=== PATIENT | female | born 1970 | race Caucasian/White ===

== ENCOUNTER 2016-09-25 13:11 | Emergency (ER) | payer OTHER ==
[2016-09-25 13:20] VITALS: RESP 16
--- NOTE | 2016-09-25 14:06 | ED ---
General Adult HPI - General Chief complaint: Extremity Injury, Lower Stated complaint: Knee Injury Time Seen by Provider: 09/25/16 13:26 Source: patient Mode of arrival: wheelchair Limitations: no limitations - History of Present Illness Initial comments: 46-year-old female presenting for right knee pain. Patient states that she was getting up into her truck and holding some items when she twisted and felt a pop and pain in her right knee. Since that time she feels like she is having pain any time she bears weight. She does have a history of right knee pain and has had recent MRI and orthopedic evaluation for this. She is waiting to start physical therapy this upcoming week for chronic right knee pain. She denies any other injury or fall. She denies any head trauma. She denies any foot or ankle pain. - Related Data Home Medications Medication Instructions Recorded Confirmed Hair Skin Nails 1 tab PO QAM 01/12/15 09/25/16 Aspirin 81 mg PO QAM 06/19/15 09/25/16 Clopidogrel [Plavix] 75 mg PO QAM 06/19/15 09/25/16 Atorvastatin [Lipitor] 40 mg PO HS 06/01/16 09/25/16 Citalopram Hydrobromide [CeleXA] 20 mg PO HS 06/01/16 09/25/16 Celecoxib [CeleBREX] 200 mg PO DAILY 09/25/16 09/25/16 Previous Rx's Medication Instructions Recorded Nitroglycerin Sl Tabs [Nitrostat] 0.4 mg SUBLINGUAL Q5M PRN #25 tab 01/14/15 Allergies Allergy/AdvReac Type Severity Reaction Status Date / Time venom-honey bee Allergy Anaphylaxis Verified 09/25/16 14:09 [bee venom (honey bee)] Review of Systems ROS Statement: Those systems with pertinent positive or pertinent negative responses have been documented in the HPI. ROS Other: All systems not noted in ROS Statement are negative. 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 Other SX: PCI with 2 stents to cx 01/12/15, HEART CATH DONE 02/13/15-meds adjusted, umbilical hernia repair, wisdom teeth extraction and tooth implants. Past Anesthesia/Blood Transfusion Reactions: No Reported Reaction Additional Past Anesthesia/Blood Transfusion Reaction / Comment(s): PT STATES B/ P WENT LOW WITH HERNIA SX, BUT NO PROBLEMS SINCE. Date of Last Stent Placement:: 01/12/15 Past Psychological History: Depression Additional Psychological History / Comment(s): Pt resides with spouse and children. She is independent. She uses no assistive devices or home care. She drives. Smoking Status: Former smoker Past Alcohol Use History: Rare Additional Past Alcohol Use History / Comment(s): Pt quit smoking in 2004. Past Drug Use History: None Reported - Past Family History Father Family Medical History: Chest Pain / Angina, Myocardial Infarction (AL) Additional Family Medical History / Comment(s): had in his mid 60s Mother Family Medical History: CVA/TIA, Diabetes Mellitus, Hypertension General Exam - General Exam Comments Initial Comments: General: Awake and Alert. No acute distress. Does not appear acutely ill. Obese. Eyes: SIMÓN, EOM intact. No nystagmus. No scleral icterus. HENT: Atraumatic, normocephalic. Mucous membranes moist. Trachea midline. Neck: The neck is supple, there is no tenderness or JVD. Cardiovascular: Regular rate and rhythm. No murmur, rub, or gallop is appreciated. Distal pulses intact, DP 2+ bilaterally. Respiratory: Lungs are clear to auscultation bilaterally. No wheezes, rales, rhonchi. No respiratory distress. Gastrointestinal: Soft, Nontender. No rebound or guarding. Non-distended. No masses or organomegaly noted. No CVA tenderness. Musculoskeletal: Right knee with mild lateral tenderness to palpation. Regimen motions intact although she does have pain with full extension and and full flexion, although intermediate ranges her without pain. She has mild tenderness to varus testing. Valgus testing appears intact. Remainder MSK with No tenderness. Normal ROM. No gross deformity. No strength deficits. Neurological: A&Ox3. CN II-XII grossly intact, There are no obvious motor or sensory deficits. Coordination appears grossly intact. Speech is normal. Skin: Skin is warm and dry and no rashes or lesions are noted. Psychiatric: Cooperative, appropriate mood & affect, normal judgment. Limitations: no limitations Course Vital Signs 09/25/16 13:17 Temperature 98.0 F Pulse Rate 74 Respiratory 16 Rate Blood Pressure 138/64 O2 Sat by Pulse 98 Oximetry Medical Decision Making - Medical Decision Making 46-year-old female presenting for right knee pain. Possible injury while she was getting up into her truck just prior to arrival. She does have some chronic knee pain which she is currently following up for with orthopedics. Exam without gross deformity or evidence of dislocation. X-ray imaging was performed which is grossly unremarkable. Patient was able to bear weight, although this is very painful for her. Discussed likely knee sprain. Discussed close follow-up with orthopedics as she may need to repeat an MRI if pain is not improving. Recommend that she does follow-up to start physical therapy this upcoming week. Patient said she [facility]. She does have a knee brace she can wear for extra support. Her friend is with her and has crutches she can use over the next several days. Discussed weight bearing as tolerated and transitioning off of the crutches to a cane to normal walking over the next week. Discussed concerning signs symptoms immediate return to ED. Patient declines any pain medication Rx at this time. Recommend NSAIDs, ice, elevation. Patient is agreeable with plan of discharge home. - Radiology Data Radiology results: report reviewed, image reviewed Disposition Clinical Impression: Right knee sprain Disposition: HOME SELF-CARE Condition: Stable Instructions: Knee Sprain (ED) Additional Instructions: Please use crutches for support. Advance weight bearing as tolerated. Ice and elevate. Please use your knee brace while up and around, you may take off when you are laying down/resting. Please follow up with [facility]. You are safe to start physical therapy. Referrals: Nereyda Adhikari DO [Primary Care Provider] - 1-2 days Time of Disposition: 14:24
--- NOTE | 2016-09-25 14:08 | XR ---
EXAMINATION TYPE: XR knee 4V RT DATE OF EXAM: 09/25/2016 2:03 PM CLINICAL HISTORY: pain TECHNIQUE: 4 views of the right knee are obtained. COMPARISON: None. FINDINGS: There is no acute fracture/dislocation. The tri-compartment joint spaces appear within no rmal limits. The overlying soft tissue appears unremarkable. IMPRESSION: There is no acute fracture or dislocation.ICD 10 NO FRACTURE, INITIAL EVALUATION
[2016-09-25 14:46] VITALS: BP 126/70; PULSE 78; TEMP 97.8
== END 2016-09-25 14:45 | disposition home or self-care (01) ==
LOC: EC 13:11
DX: S83.91XA Sprain of unspecified site of right knee, initial encounter (principal); E78.5 Hyperlipidemia, unspecified; I25.10 Atherosclerotic heart disease of native coronary artery without angina pectoris; I25.2 Old myocardial infarction; F32.9 Major depressive disorder, single episode, unspecified; Z95.5 Presence of coronary angioplasty implant and graft; Z79.02 Long term (current) use of antithrombotics/antiplatelets; Z79.82 Long term (current) use of aspirin; Z91.030 Bee allergy status; Z87.891 Personal history of nicotine dependence; Z79.899 Other long term (current) drug therapy; X50.1XXA Overexertion from prolonged static or awkward postures, initial encounter; Y93.89 Activity, other specified
CPT/HCPCS: 99283

== ENCOUNTER → 2018-03-20 | Outpatient (CLI) | payer OTHER ==
--- NOTE | 2018-03-22 11:58 | MM ---
Reason for exam: screening (asymptomatic). Last mammogram was performed 3 years and 5 months ago. History: Took hormonal contraceptives for 10 years. Physical Findings: A clinical breast exam by your physician is recommended on an annual basis and results should be correlated with mammographic findings. MG 3D Screening Mammo W/Cad Bilateral CC and MLO view(s) were taken. Prior study comparison: October 21, 2014, bilateral MG screening mammo w CAD. August 14, 2013, bilateral digital screening mammo w/CAD. There are scattered fibroglandular densities. No significant changes when compared with prior studies. ASSESSMENT: Negative, BI-RAD 1 RECOMMENDATION: Routine screening mammogram of both breasts in 1 year.
== END | disposition home or self-care (01) ==
LOC: RADMAMWWP 14:04
PROVIDERS: ATTEND Family Medicine
DX: Z12.31 Encounter for screening mammogram for malignant neoplasm of breast (principal)
CPT/HCPCS: 77063; 77067